=== PATIENT | female | born 1945 | race Caucasian/White ===

== ENCOUNTER → 2018-04-28 14:04 | Outpatient (CLI) | payer MEDICARE, SELFPAY ==
--- NOTE | 2018-04-28 14:20 | DI.CT.S_ITS ---
PROCEDURE: CT LE LT W/O CON INDICATIONS: Pain in left ankle and joints of left foot TECHNIQUE: Noncontrast 1-1.5 mm axial sections acquired from above the tibiotalar joint to the bottom of the calcaneus, with coronal and sagittal reformats. COMPARISON: [facility], MR, LOWER EXTREM. JNT WO CONTRAST, 04/06/2010, 8:52. FINDINGS: Image quality: Excellent. Bones: No fracture or dislocation. Mild osteoarthritic degenerative changes noted at the talonavicular joint, naviculocuneiform joint, second TMT joint and first MTP. Calcaneal bone spurs. Soft tissues: No soft tissue masses identified. No soft tissue fluid collections identified that would be suspicious for hematoma or abscess. No soft tissue inflammation. The flexor and extensor tendons are grossly intact. IMPRESSION: Mild multifocal osteoarthritis. Dictated by: Lacie Cantu MD, PhD on 04/28/2018 at 17:17 Approved by: Lacie Cantu MD, PhD on 04/29/2018 at 7:03
== END ==
PROVIDERS: PCP Family Medicine; Visit Provider Podiatrist Foot & Ankle Surgery
DX: M25.572 Pain in left ankle and joints of left foot (principal); M19.072 Primary osteoarthritis, left ankle and foot; M77.32 Calcaneal spur, left foot
CPT/HCPCS: 73700

== ENCOUNTER 2021-11-30 10:35 | Day surgery (SDC) | payer MEDICARE, SELFPAY ==
[2021-11-29 07:37] VITALS: BMI 25.1
[2021-11-30] VITALS (7 sets, daily range): BP systolic 122–178; BP diastolic 72–100; PULSE 72–114; RESP 16–22; TEMP 36.2–36.8; O2SAT 96–100; BMI 24.3
[2021-11-30 11:30] LABS: COVID19 -Nasal RAPID Negative (Negative)
--- NOTE | 2021-11-30 13:06 | PM.PREOP ---
Pre-operative Note Interval Note History & Physical reviewed/Exam performed by Physician: Yes Changes to H&P: No
--- NOTE | 2021-11-30 13:07 | PM.OP.1 ---
Operative Date/Time/Diagnoses Date of procedure: 11/30/21 Time of procedure: 14:18 Pre-op diagnosis: Closed, possible open nasal fracture with external nasal deformity, overlying soft tissue abscess versus hematoma Post-op diagnosis: same Procedure & Clinicians Procedure: 1. Closed reduction nasal fracture without stabilization 2. Incision and drainage nasal dorsum hematoma Same procedure as scheduled: Yes Indications: 76-year-old anticoagulated female suffered a ground level fall with nasal fracture 11/17, now 13 days ago, with CT showing displaced comminuted nasal fracture primarily to the left and superiorly, with overlying hematoma versus possible abscess on physical exam. Following discussion of the material risks benefits complications and alternatives, she elected to proceed with surgical intervention. Surgeon: Dano Hernandez Click Yes if Unassisted: Yes Anesthesia Type: General and Local Operative Notes Findings: Comminuted middle 3rd nasal fracture primarily deviated to the left, slightly reduced. Hematoma with old firm clot evacuated overlying the fracture, scar excised and incision closed. Closure Type: primary Specimen(s): none sent Estimated Blood Loss (mL): 5 Procedure in detail: Following identification and confirmation of consent, as well as preoperative Afrin nasal spray she was brought to the operating suite and placed in the supine position. General laryngeal mask anesthesia was administered. I packed small cotton balls with 4% lidocaine tightly under the nasal bones bilaterally. The nose was prepped with Betadine and a 15 blade incised horizontally into the hematoma which was evacuated and irrigated and closed with interrupted 5 0 nylon, followed by bacitracin. Upon removal of the intranasal cotton, the Boies elevator was placed underneath the right depressed nasal bone, and external digital pressure was simultaneously applied over the elevated left nasal bone and the nasal pyramid was reduced slightly past midline to allow eventual midline position, stable. The cotton was temporarily replaced underneath the nasal nasal bones for mild bleeding and was removed after another minute with good hemostasis. She was awakened in the operating room and taken to recovery room stable condition without known complication. Complications: none Post-operative Condition: stable Disposition: same day surgery Plan for aftercare: Ice as tolerated, Polysporin to the incision at all times, pressure to the incision for any bleeding, follow-up next week for suture removal. Afrin for any bleeding intranasally.
[2021-11-30] MEDS: OXYMETAZOLINE NASAL SPRAY 15 ML 2 SPRAYS NASAL (13:27)
[2021-11-30] MEDS: LACTATED RINGERS 1,000 ML 42 ML IV (13:34)
--- NOTE | 2021-11-30 13:59 | SUR.OPER ---
Supine on padded OR bed, head on pillow, arms secured on padded arm boards at <90 degrees abduction, legs uncrossed, safety belt at thigh, tape over blanket over lower legs.
[2021-11-30] MEDS: LIDOCAINE 4% SOLN 50 ML 20 ML TOP (14:00)
[2021-11-30] MEDS: LIDOCAINE 1% 20 ML INJ (14:03)
[2021-11-30] MEDS: BACITRACIN OINT 0.9 GM PCKT 1 APPLIC TOP (14:10)
[2021-11-30] MEDS: ACETAMINOPHEN 325 MG TABLET PO (14:52)
[2021-11-30] MEDS: ACETAMINOPHEN 325 MG TABLET 650 MG PO (15:30)
== END 2021-11-30 15:30 | disposition home or self-care (01) ==
PROVIDERS: PCP Family Medicine; Referring Provider Otolaryngology; Visit Provider Otolaryngology
PROC: 0NSBXZZ Reposition Nasal Bone, External Approach (ICD-10-PCS; CPT 21337; principal; 2021-11-30 11:45)
DX: S02.2XXA Fracture of nasal bones, initial encounter for closed fracture (principal); W18.30XA Fall on same level, unspecified, initial encounter; I48.91 Unspecified atrial fibrillation; I10 Essential (primary) hypertension; E78.5 Hyperlipidemia, unspecified
CPT/HCPCS: 21337; 87635; A9270; J1100; J2405; J2704; J3010

== ENCOUNTER → 2021-12-07 15:05 | Outpatient (CLI) | payer MEDICARE, SELFPAY ==
--- NOTE | 2021-12-07 15:06 | DI.MRI.S_ITS ---
PROCEDURE: MR HEAD/BRAIN WO CON INDICATIONS: Concussion without loss of consciousness TECHNIQUE: Non-contrast axial T1 spin echo, axial T2 fast spin echo, sagittal and axial FLAIR, coronal T2 fast spin echo, axial gradient echo, axial diffusion and ADC through the brain. COMPARISON: [facility], CT, CT HEAD WITHOUT CONTRAST, 11/22/2021, 16:31. FINDINGS: Image quality: Excellent. CSF spaces: Ventricles appear symmetric in size and shape. Basal cisterns are patent. No extra-axial fluid collections. Brain: No intracranial bleeds or mass effects. There is cerebral volume loss for age. There are periventricular and deep white matter chronic small vessel ischemic changes. Brainstem appears normal. Diffusion-weighted images show no acute ischemic insults. No chronic ischemic insults. Normal intravascular flow voids are present. Skull and face: Calvarial bone marrow is normal in signal. Orbits are normal. Sinuses: Sinuses and mastoids are clear. IMPRESSION: 1. Volume loss and small vessel ischemic disease. 2. No acute process. No recent infarct. Dictated by: Annabel Hutton M.D. on 12/07/2021 at 16:03 Approved by: Annabel Hutton M.D. on 12/07/2021 at 16:04
--- NOTE | 2021-12-07 15:08 | DI.CT.S_ITS ---
PROCEDURE: CT CERVICAL SPINE WO CON INDICATIONS: Concussion without loss of consciousness TECHNIQUE: Noncontrast 3 mm thick sections acquired from the skull base to the T4 level. Sagittal and coronal reformats were then constructed. For radiation dose reduction, the following was used: automated exposure control, adjustment of mA and/or kV according to patient size. COMPARISON: None. FINDINGS: Image quality: Excellent. Bones: No fractures or dislocations. Visualized superior ribs are intact. Multilevel disc space narrowing and endplate osteophyte formation. Facet hypertrophy throughout the cervical and upper thoracic spine. Soft tissues: Prevertebral soft tissues are normal in thickness. No paravertebral hematomas. No apical pneumothoraces. IMPRESSION: 1. No acute fracture. No osseous lesion. If symptoms and/or clinical suspicion for pathology persist, further assessment with repeat, or advanced imaging (e.g., CT, MRI, or bone scan) may be helpful for further assessment. 2. Multilevel degenerative disc and facet disease. Dictated by: Annabel Hutton M.D. on 12/07/2021 at 16:37 Transcribed by: PATIENCE on 12/07/2021 at 16:38 Approved by: Annabel Hutton M.D. on 12/07/2021 at 17:00
== END ==
PROVIDERS: PCP Family Medicine; Referring Provider Family Medicine; Visit Provider Family Medicine
DX: S06.0X0D Concussion without loss of consciousness, subsequent encounter (principal); S02.2XXA Fracture of nasal bones, initial encounter for closed fracture; S09.93XA Unspecified injury of face, initial encounter; M47.812 Spondylosis without myelopathy or radiculopathy, cervical region; M50.30 Other cervical disc degeneration, unspecified cervical region; W18.30XA Fall on same level, unspecified, initial encounter
CPT/HCPCS: 70551; 72125

== ENCOUNTER 2022-11-20 12:39 | Emergency (ER) | payer MEDICARE, SELFPAY ==
[2022-11-20 12:44] VITALS: BP 162/85; PULSE 66; RESP 16; TEMP 36.4; O2SAT 98; BMI 23.3
--- NOTE | 2022-11-20 12:53 | DI.CT.S_ITS ---
PROCEDURE: CT HEAD/BRAIN WO CON INDICATIONS: fall, hit head TECHNIQUE: Noncontrast 4.5 mm thick angled axial sections acquired from the foramen magnum to the vertex, with coronal and sagittal reformats. For radiation dose reduction, the following was used: automated exposure control, adjustment of mA and/or kV according to patient size. COMPARISON: [facility], CT, CT HEAD WITHOUT CONTRAST, 11/22/2021, 16:31. FINDINGS: Image quality: Good CSF spaces: Basal cisterns are patent. Lateral ventricles are symmetric. Volume: Vascular calcifications. Periventricular white matter disease is commonly seen with chronic microangiopathy. Volume loss is present. These findings are [id number] Brain: No intracranial hemorrhage. Hdez-white differentiation is grossly maintained. Craniofacial structures: No displaced fracture. Sinuses are clear. Orbits are intact. Nasal deformity is present, possibly nonacute. IMPRESSION: No acute intracranial abnormality. Dictated by: Bebeto Mckoy M.D. on 11/20/2022 at 13:36 Approved by: Bebeto Mckoy M.D. on 11/20/2022 at 13:38
--- NOTE | 2022-11-20 13:27 | DI.CT.S_ITS ---
PROCEDURE: CT CERVICAL SPINE WO CON INDICATIONS: fall, hit head TECHNIQUE: Noncontrast 3 mm thick sections acquired from the skull base to the T4 level. Sagittal and coronal reformats were then constructed. For radiation dose reduction, the following was used: automated exposure control, adjustment of mA and/or kV according to patient size. COMPARISON: [facility], CT, CT CERVICAL SPINE WO CON, 12/07/2021, 15:54. FINDINGS: Image quality: Good Bones: Bvlv-fn-jeacvkeh degenerative changes, particularly at C1-C2. Trace anterolisthesis of C4 on C5, similar to prior, probably degenerative. Trace anterolisthesis also seen of T1 on T2, probably also degenerative. No traumatic subluxation. Vertebral body heights are well maintained. Similar hyperdensity posterior to C1 on C2, likely degenerative pannus Soft tissues: Prevertebral soft tissues are normal in thickness. No paravertebral hematomas. No apical pneumothoraces. IMPRESSION: Nnny-dr-kesvenji degenerative changes, similar to prior. No acute fracture or traumatic subluxation. If there is high concern for further derangement, consider MRI evaluation. Dictated by: Bebeto Mckoy M.D. on 11/20/2022 at 13:38 Approved by: Bebeto Mckoy M.D. on 11/20/2022 at 13:41
--- NOTE | 2022-11-20 13:58 | ED.HEATRA ---
HPI - Head Injury <Anamaria Serrato PA-C - Last Filed: 11/20/22 17:20> General Chief complaint: Head Injury Stated complaint: Bump on the back of her head, tripped Time Seen by Provider: 11/20/22 13:58 Source: patient and family Mode of arrival: Wheelchair History of Present Illness HPI Narrative: Patient is a 77-year-old female who tripped and fell backwards and hit her head on a backhoe that was parked in her yard. This occurred last night while she was planting trees with her . She presents with a bump on the back of her head and a mild headache. She reports there was initially moderate bleeding which stopped with pressure. She is on Eliquis. She realized this morning that she should come be evaluated. She has not taken any pain medication or tried any therapy. Last tetanus was 20 or 30 years ago. She denies any loss of consciousness, nausea vomiting, or vision change. Related Data Home Medications Medication Instructions Recorded Confirmed apixaban 5 mg tablet (Eliquis) 5 mg PO BID 11/29/21 11/30/21 chlorthalidone 25 mg tablet 25 mg PO DAILY 11/29/21 11/30/21 clonidine HCl 0.1 mg tablet 0.2 mg PO BID 11/29/21 11/30/21 furosemide 20 mg tablet (Lasix) 20 mg PO DAILY 11/29/21 11/30/21 losartan 50 mg tablet 50 mg PO BID 11/29/21 11/30/21 nifedipine 30 mg tablet,extended 30 mg PO DAILY 11/29/21 11/29/21 release pravastatin 20 mg tablet 20 mg PO BEDTIME 11/29/21 11/29/21 Previous Rx's Medication Instructions Recorded [ESTRADI[facility]] 0.2 % [facility] 01/[facility]16 Allergies Allergy/AdvReac Type Severity Reaction Status Date / Time Penicillins [PENICILLINS] Allergy Unknown Rash, Hives Verified 11/20/22 12:44 latex Allergy Rash, Hives Verified 11/20/22 12:44 levofloxacin Allergy Verified 11/20/22 12:44 amlodipine AdvReac Lower Verified 11/20/22 12:44 extremity swelling hydralazine AdvReac Headache Verified 11/20/22 12:44 metoprolol AdvReac Bradycardia Verified 11/20/22 12:44 oxycodone AdvReac Shortness Verified 11/20/22 12:44 of Breath tramadol AdvReac Vertigo Verified 11/20/22 12:44 Review of Systems <Anamaria Serrato PA-C - Last Filed: 11/20/22 17:20> Review of Systems ROS Unobtainable: All systems reviewed & are unremarkable except as noted in HPI and below Patient History <Anamaria Serrato PA-C - Last Filed: 11/20/22 17:20> Medical History A-fib Fall from ground level (11/17/21) HLD (hyperlipidemia) HTN (hypertension) Thyroid disease Surgical History History of bladder suspension procedure Hx of foot surgery (06/2018) Status post appendectomy Status post knee surgery Status post tonsillectomy and adenoidectomy Social History household members: spouse Smoking Status: Never smoker alcohol intake: never Smoking Status: Never smoker Substance Use Type: does not use Exam <Anamaria Serrato PA-C - Last Filed: 11/20/22 17:20> Narrative Exam Narrative: GENERAL: 77 year old patient appears stated age. Well-developed patient, in no distress. NEURO: AOx3. HEAD: Normocephalic. Small hematoma on left occiput with scabbing, no active bleeding. EYES: Pupils equal round and reactive. Extraocular motions intact. No scleral icterus. No injection or drainage. ENT: Nose without bleeding or purulent drainage. Airway patent. NECK: Trachea midline. Non tender RESPIRATORY: No distress EXTREMITIES: No edema or joint tenderness. SKIN: No rash or erythema of visible areas Initial Vital Signs Initial Vital Signs: Vital Signs Temperature 97.6 F 11/20/22 12:44 Pulse Rate 66 11/20/22 12:44 Respiratory Rate 16 11/20/22 12:44 Blood Pressure 162/85 H 11/20/22 12:44 Pulse Oximetry 98 11/20/22 12:44 Oxygen Delivery Method Room Air 11/20/22 12:44 <Low Campbell MD - Last Filed: 11/29/22 08:42> Initial Vital Signs Initial Vital Signs: Vital Signs Temperature 97.6 F 11/20/22 12:44 Pulse Rate 66 11/20/22 12:44 Respiratory Rate 16 11/20/22 12:44 Blood Pressure 162/85 H 11/20/22 12:44 Pulse Oximetry 98 11/20/22 12:44 Oxygen Delivery Method Room Air 11/20/22 12:44 Course <Anamaria Serrato PA-C - Last Filed: 11/20/22 17:20> Orders Ordered: Discontinued Medications Diphtheria/Tetanus/Acell Pertussis (Tet,Diph,Pertuss(Acell),Vac/Pf 0.5 Ml Syringe) 0.5 ml IM .ONCE ONE Stop: 11/20/22 14:15 Last Admin: 11/20/22 14:21 Dose: 0.5 ml Documented By: YANI Vital Signs Vital signs: Vital Signs - 8 hr 11/20/22 12:44 11/20/22 14:29 Temperature 97.6 F Pulse Rate 66 66 Respiratory Rate 16 18 Blood Pressure 162/85 H 150/72 H Pulse Oximetry 98 99 Oxygen Delivery Method Room Air Room Air <Low Campbell MD - Last Filed: 11/29/22 08:42> Orders Ordered: Discontinued Medications Diphtheria/Tetanus/Acell Pertussis (Tet,Diph,Pertuss(Acell),Vac/Pf 0.5 Ml Syringe) 0.5 ml IM .ONCE ONE Stop: 11/20/22 14:15 Last Admin: 11/20/22 14:21 Dose: 0.5 ml Documented By: DKEbony Vital Signs Vital signs: Vital Signs - 8 hr 11/20/22 12:44 11/20/22 14:29 Temperature 97.6 F Pulse Rate 66 66 Respiratory Rate 16 18 Blood Pressure 162/85 H 150/72 H Pulse Oximetry 98 99 Oxygen Delivery Method Room Air Room Air MDM - Head Injury <Anamaria Serrato PA-C - Last Filed: 11/20/22 17:20> Imaging Data CT - cervical spine: Radiologist's Impression: PROCEDURE:? CT CERVICAL SPINE WO CON ? INDICATIONS:? fall, hit head ? TECHNIQUE:? Noncontrast 3 mm thick sections acquired from the skull base to the T4 level.? Sagittal and coronal reformats were then constructed.? For radiation dose reduction, the following was used:? automated exposure control, adjustment of mA and/or kV according to patient size.? ? COMPARISON:? [facility], CT, CT CERVICAL SPINE WO CON, 12/07/2021, 15:54. ? FINDINGS:? Image quality:? Good ? Bones:? Yubg-aw-jdkjgowt degenerative changes, particularly at C1-C2.? Trace anterolisthesis of C4 on C5, similar to prior, probably degenerative.? Trace anterolisthesis also seen of T1 on T2, probably also degenerative.? No traumatic subluxation.? Vertebral body heights are well maintained. Similar hyperdensity posterior to C1 on C2, likely degenerative pannus ? Soft tissues:? Prevertebral soft tissues are normal in thickness.? No paravertebral hematomas.? No apical pneumothoraces.? ? ? IMPRESSION:? Qrea-jv-qrznehsn degenerative changes, similar to prior.? No acute fracture or traumatic subluxation.? If there is high concern for further derangement, consider MRI evaluation. ? Dictated by: Bebeto Mckoy M.D. on 11/20/2022 at 13:38 ? ? Approved by: Bebeto Mckoy M.D. on 11/20/2022 at 13:41 ? CT scan - head: Radiologist's Impression: PROCEDURE:? CT HEAD/BRAIN WO CON ? INDICATIONS:? fall, hit head ? TECHNIQUE:? Noncontrast 4.5 mm thick angled axial sections acquired from the foramen magnum to the vertex, with coronal and sagittal reformats.? For radiation dose reduction, the following was used:? automated exposure control, adjustment of mA and/or kV according to patient size.? ? COMPARISON:? [facility], CT, CT HEAD WITHOUT CONTRAST, 11/22/2021, 16:31. ? FINDINGS:? Image quality:? Good ? CSF spaces: Basal cisterns are patent. Lateral ventricles are symmetric. Volume:? Vascular calcifications. Periventricular white matter disease is commonly seen with chronic microangiopathy. Volume loss is present. These findings are [id number] ? ? Brain: No intracranial hemorrhage. Hdez-white differentiation is grossly maintained. ? Craniofacial structures: No displaced fracture. Sinuses are clear. Orbits are intact.? Nasal deformity is present, possibly nonacute. ? IMPRESSION:? No acute intracranial abnormality.? ? ? Dictated by: Bebeto Mckoy M.D. on 11/20/2022 at 13:36 ? ? Approved by: Bebeto Mckoy M.D. on 11/20/2022 at 13:38 ? MDM Narrative Medical decision making narrative: Multiple etiologies for patient's symptoms considered including, but not limited to: Intracranial hemorrhage, skull fracture, C-spine injury. Imaging of head and cervical spine are both negative for acute injury. Advised patient to take Tylenol for headache, she has it at home and will take it there. Tetanus booster given. Wound has scabbed over, discussed cleaning it but we will leave it to heal as it is already formed a good clot and I do not want to make her bleed again. Patient's symptoms improved over duration of stay with above-stated therapies. Findings and discharge diagnosis discussed with patient/family followed by verbalization of understanding Return precautions discussed with patient/family whom verbalize understanding of diagnosis and plan Discharge Plan Departure Patient Disposition: Home Clinical Impression: Blunt head trauma Instructions: DI for Closed Head Injury Activity Restrictions/Additional Instructions: *You have been diagnosed with blunt head injury after falling yesterday. Your head CT and neck CT to not show any fracture or acute injury. You may have a mild concussion; the treatment for this is brain rest which includes no screen time, no music or reading, truly rest your brain. The symptoms will likely improve over time. I would recommend taking Tylenol for headache, up to 3000 mg in 24 hours. You can apply an ice pack to the sore area on your head to decrease swelling. Wait 1 more day and then you can shower tomorrow and wash your hair, I would give your body more time to form a good blood clot over the small laceration before washing her hair because you may bleed heavily again. We will give you a tetanus booster today since it seems you are due for one. *What to do: *Please continue to take your regular medications as directed. [ ] New medication prescriptions sent to your pharmacy: [ ] [ ] New medication written as a paper prescription [x] No new medications given *Please follow up with your primary care provider in 2-3 days, call for an appointment. Let them know you were seen in the Emergency Department and that we ask that you be seen in follow up. We will electronically transmit a record of today's note if your PCP is in our system *If you do not have a primary care provider please contact the [facility] Resource line at [phone]. They will ask some questions about your medical history and help get you set up with a doctor in the community. *Return to Emergency Department if you should have any new, worsening or concerning symptoms, such as [fever greater than 101 F, shaking chills, worsening pain, persistent vomiting or other concerning symptoms]. Prescriptions: No Action [ESTRADIOL] 0.2 % [facility] Qty: 30 3RF losartan 50 mg Tablet 50 mg PO BID clonidine HCl 0.1 mg Tablet 0.2 mg PO BID nifedipine 30 mg Tablet Extended Release 30 mg PO DAILY chlorthalidone 25 mg Tablet 25 mg PO DAILY pravastatin 20 mg Tablet 20 mg PO BEDTIME furosemide [Lasix] 20 mg Tablet 20 mg PO DAILY Eliquis 5 mg Tablet 5 mg PO BID Referrals: Malika Alcantara MD [Primary Care Provider] - Stand Alone Forms: Patient Portal/API ED Sign-out <Low Campbell MD - Last Filed: 11/29/22 08:42> Cosign ED Attending Coskatherineature Attestation: I was immediately available in the department for consultation. ?This documentation has been reviewed and I agree with assessment and plan. Supervised by Low Campbell MD
[2022-11-20] MEDS: TET,DIPH,PERTUSS(ACELL),VAC/PF 0.5 ML SYRINGE IM (14:21)
[2022-11-20 14:29] VITALS: BP 150/72; PULSE 66; RESP 18; O2SAT 99
== END 2022-11-20 14:31 | disposition home or self-care (01) ==
PROVIDERS: Emergency Provider Physician Assistant; PCP Family Medicine
DX: S09.90XA Unspecified injury of head, initial encounter (principal); W01.198A Fall on same level from slipping, tripping and stumbling with subsequent striking against other object, initial encounter; Z23 Encounter for immunization
CPT/HCPCS: 70450; 72125; 90471; 99284; 90715

== ENCOUNTER → 2023-05-13 08:26 | Outpatient (CLI) | payer MEDICARE, SELFPAY | PROVIDERS: PCP Family Medicine; Visit Provider Nurse Practitioner Family | DX: T65.91XA Toxic effect of unspecified substance, accidental (unintentional), initial encounter (principal); W57.XXXA Bitten or stung by nonvenomous insect and other nonvenomous arthropods, initial encounter | CPT/HCPCS: 87070; 87075; 87077; 87147; 87186; 87205 ==

== ENCOUNTER 2023-05-15 10:05 | Emergency (ER) | payer MEDICARE, SELFPAY ==
[2023-05-15 10:22] VITALS: BP 130/68; PULSE 82; RESP 17; TEMP 36.7; O2SAT 97; BMI 23.3
--- NOTE | 2023-05-15 12:45 | PC.NURSE ---
Pt states she think was bit by a bug (possibly spider)
--- NOTE | 2023-05-15 13:08 | ED.SKABFB ---
HPI - Skin/Abscess/Foreign Bdy General Chief complaint: Skin/Abscess/Foreign Body Stated complaint: bug bite poss infected bleeding Time Seen by Provider: 05/15/23 13:07 Source: patient Mode of arrival: Ambulatory History of Present Illness HPI narrative: 77-year-old woman with a history of paroxysmal atrial fibrillation, anticoagulated, hypertension, hyperlipidemia who presents with increasing left thigh pain. She had some sort of ?bug bite? a couple of days ago. Was seen at urgent care 3 days ago started on doxycycline for which she has taken 4 total doses as well as mupirocin. Notes that the wound is getting larger, more erythematous and more painful. She has not complaining of significant systemic symptoms such as fever, confusion, cough, dyspnea, chest pain, headaches, myalgias Related Data Home Medications Medication Instructions Recorded Confirmed apixaban 5 mg tablet (Eliquis) 5 mg PO BID 11/29/21 05/15/23 clonidine HCl 0.1 mg tablet 0.2 mg PO BID 11/29/21 05/15/23 furosemide 20 mg tablet (Lasix) 20 mg PO DAILY 11/29/21 05/15/23 losartan 50 mg tablet 50 mg PO BID 11/29/21 05/15/23 nifedipine 30 mg tablet,extended 30 mg PO DAILY 11/29/21 05/15/23 release pravastatin 20 mg tablet 20 mg PO BEDTIME 11/29/21 05/15/23 Previous Rx's Medication Instructions Recorded [ESTRADIOL] 0.2 % SEECOM ##30 01/24/16 doxycycline hyclate 100 mg capsule 100 mg PO BID #20 caps 05/13/23 mupirocin 2 % topical ointment 1 applic topical TID #15 grams 05/13/23 clindamycin HCl 300 mg capsule 300 mg PO TID #15 caps 05/15/23 Allergies Allergy/AdvReac Type Severity Reaction Status Date / Time Penicillins [PENICILLINS] Allergy Unknown Rash, Hives Verified 05/15/23 10:27 latex Allergy Rash, Hives Verified 05/15/23 10:27 levofloxacin Allergy Verified 05/15/23 10:27 amlodipine AdvReac Lower Verified 05/15/23 10:27 extremity swelling hydralazine AdvReac Headache Verified 05/15/23 10:27 metoprolol AdvReac Bradycardia Verified 05/15/23 10:27 Review of Systems Review of Systems Narrative: Pertinent positive and negative findings as per HPI Patient History Medical History Fall from ground level (11/17/21) HLD (hyperlipidemia) HTN (hypertension) Thyroid disease A-fib Surgical History Hx of foot surgery (06/2018) History of bladder suspension procedure Status post knee surgery Status post appendectomy Status post tonsillectomy and adenoidectomy Social History household members: spouse Smoking Status: Never smoker alcohol intake: never Smoking Status: Never smoker alcohol intake frequency: other Substance Use Type: does not use Exam Initial Vital Signs Initial Vital Signs: Vital Signs Temperature 98.1 F 05/15/23 10:22 Pulse Rate 82 05/15/23 10:22 Respiratory Rate 17 05/15/23 10:22 Blood Pressure 130/68 05/15/23 10:22 Pulse Oximetry 97 05/15/23 10:22 Oxygen Delivery Method Room Air 05/15/23 10:22 General: Alert appropriate in no acute distress Respiratory: Able to speak in full sentences, no obvious respiratory distress Skin: Lower external right thigh has an approximately 12 x 12 cm area of erythema that is warm to the touch, has a 2 x 2 cm of central necrosis with what feels like deeper fluctuance Neurologic: Grossly intact no obvious asymmetries or abnormalities Psych: appropriate insight and affect, cooperative Bedside ultrasound does suggest deeper abscess collection Procedures Abscess I/D Right thigh: Time of procedure: 14:48 Site: lower extremity Side (if applicable): right Local Anesthetic: lidocaine 2% Amount of anesthesia used (mL): 8 Technique: incised with #11 blade Amount of fluid expressed (mL): 10 Irrigation: Yes Packing used?: plain Course Orders Ordered: ED Orders 05/15/23 13:20 Wound Culture and Gram Stain Stat 05/15/23 13:43 Complete Blood Count AUTO DIFF Stat Comprehensive Metabolic Panel Stat Discontinued Medications Ceftriaxone Sodium 2,000 mg/ (Sodium Chloride) 100 mls @ 200 mls/hr IV NOW ONE Stop: 05/15/23 13:14 Last Infusion: 05/15/23 14:25 Dose: Infused Documented By: Admin: 05/15/23 13:39 Dose: 200 mls/hr Documented By: JOSE Vital Signs Vital signs: Vital Signs - 8 hr 05/15/23 10:22 05/15/23 14:31 Temperature 98.1 F 97.8 F Pulse Rate 82 73 Respiratory Rate 17 16 Blood Pressure 130/68 149/72 H Pulse Oximetry 97 97 Oxygen Delivery Method Room Air Room Air MDM - Skin/Abscess/Foreign Bdy Lab Data 05/15/23 13:43 05/15/23 13:43 Labs: Lab Results 05/15/23 Range/Units 13:43 WBC 10.0 (4.5-11.0) X10^3/uL RBC 3.97 L (4.0-5.2) X10^6/uL Hgb 12.7 (12.0-16.0) g/dL Hct 36.9 (36-46) % MCV 92.8 (80-100) fL MCH 31.9 (26-34) PG MCHC 34.4 (30-36) % RDW 13.7 (11.6-14.8) % Plt Count 318 (150-400) X10^3/uL Neut % (Auto) 74.4 (50-75) % Lymph % (Auto) 16.8 L (25-40) % Emmons % (Auto) 7.5 (3-14) % Eos % (Auto) 0.9 L (2-4) % Baso % (Auto) 0.4 (0-2) % Neut # (Auto) 7400 H (9178-8628) /uL Lymph # (Auto) 1700 (6287-6831) /uL Emmons # (Auto) 700 (0-900) /uL Eos # (Auto) 100 (0-450) /uL Baso # (Auto) 0 (0-100) /uL Sodium 133 L (137-145) mmol/L Potassium 3.8 (3.4-5.1) mmol/L Chloride 100 (98-107) mmol/L Carbon Dioxide 26 (22-32) mmol/L BUN 34 H (7-17) mg/dL Creatinine 0.76 (0.52-1.04) mg/dL Estimated GFR > 60 (>60) mL/min BUN/Creatinine Ratio 44.7 H (6-22) Glucose 94 (80-110) mg/dL Calcium 10.3 H (8.4-10.2) mg/dL Total Bilirubin 0.7 (0.2-1.3) mg/dL AST 47 H (14-36) IU/L ALT 58 H (<35) IU/L Alkaline Phosphatase 118 (38-126) U/L Total Protein 8.3 H (6.3-8.2) g/dL Albumin 4.3 (3.5-5.0) g/dL Globulin 4.0 (1.7-4.1) g/dL Albumin/Globulin Ratio 1.1 (1.0-2.8) MDM Narrative Medical decision making narrative: CC: 77-year-old woman with developing abscess on the right outer thigh. Day 2 of doxycycline Complicating co-morbidities: Paroxysmal AFib, hypertension, anticoagulated Data collected from: patient, Differential considered: Failed antibiotic treatment, superficial cellulitis, deep cellulitis, abscess, muscle necrosis Exam documented above, pertinent findings include: Cellulitis with abscess and central necrosis over the lateral aspect of the right thigh. Bedside ultrasound does show moderate abscess under the area of cellulitis. There is no lymphangitic streaking, no inguinal adenopathy. Lab Test results independently reviewed as above. Pertinent findings: CBC is reassuring Chemistries show appropriate renal function. Minimal elevation 2 AST and ALT appreciated today uncertain etiology Wound culture from May 12 is showing MRSA, it is sensitive to doxycycline gentamicin vancomycin daptomycin moxifloxacin rifampin tetracycline resistant to Bactrim Cipro and erythromycin Treatments: I and D of wound, culture is sent. IV ceftriaxone given Discussion: 77-year-old woman with a superficial cellulitis of the right thigh that has now developed an abscess. Quite a bit of purulence with some necrotic central tissue was removed today. Bleeding is well controlled. We will ask her to continue with the doxycycline and to this will add clindamycin. There is a small amount of gauze was left in the wound that I have instructed her to leave in place for 48 hours to make sure there is superficial closure. She is instructed to return with increasing pain, new findings, spreading redness or any type of systemic symptoms like fever, headache or confusion. Questions are answered and she is safe for discharge Discharge Plan Departure Patient Disposition: Home Clinical Impression: Cellulitis Qualifiers: Site of cellulitis: extremity Site of cellulitis of extremity: lower extremity Laterality: right Qualified Code(s): L03.115 - Cellulitis of right lower limb Abscess of skin or subcutaneous tissue Qualifiers: Site of cutaneous abscess: extremity Site of cutaneous abscess of extremity: lower extremity Laterality: right Qualified Code(s): L02.415 - Cutaneous abscess of right lower limb Instructions: DI for Skin Abscess Activity Restrictions/Additional Instructions: Thank you for coming in today This did start out as a cellulitis and did progress to an abscess. The culture done on the at urgent Care shows staph aureus with multiple resistances but it is sensitive to doxycycline which you are currently taking. To this I am going to add clindamycin for an additional 5 days. For the most part, draining the abscess is going to provide the most benefit [facility] and needs [facility] be [facility] by tomorrow. Please leave the piece of gauze in the wound until Friday. On Friday you can get in the shower and simply pull the gauze out. I do want the wound actually to stay open on the surface and close/heal from the inside out. You can use Tylenol to help for pain control. You may find that hot compresses or heating pad to the area is also helpful If you find that you are developing fevers, body aches, headaches or that the wound is expanding or you are having more muscle spasm or pain in the area you do need to come back to the ER for further evaluation Prescriptions: New clindamycin HCl 300 mg capsule 300 mg PO TID Qty: 15 0RF No Action doxycycline hyclate 100 mg capsule 100 mg PO BID Qty: 20 0RF mupirocin 2 % ointment 1 applic topical TID Qty: 15 0RF [ESTRADIOL] 0.2 % SEECOM Qty: 30 3RF losartan 50 mg Tablet 50 mg PO BID clonidine HCl 0.1 mg Tablet 0.2 mg PO BID nifedipine 30 mg Tablet Extended Release 30 mg PO DAILY pravastatin 20 mg Tablet 20 mg PO BEDTIME furosemide [Lasix] 20 mg Tablet 20 mg PO DAILY Eliquis 5 mg Tablet 5 mg PO BID Referrals: Malika Alcantara MD [Primary Care Provider] - Stand Alone Forms: Patient Portal/API
[2023-05-15] MEDS: cefTRIAXone 2,000 MG in SODIUM CHLORIDE 0.9% 100 ML 200 MG IV (13:39)
[2023-05-15 13:57] LABS: Add Manual Diff / Slide Review NO; Basophils Absolute Auto 0 /uL (0-100); Basophils Percent Auto 0.4 % (0-2); Eosinophils Absolute Auto 100 /uL (0-450); Eosinophils Percent Auto 0.9 % (2-4); Hematocrit 36.9 % (36-46); Hemoglobin 12.7 g/dL (12.0-16.0); Lymphocytes Absolute Auto 1700 /uL (1100-4500); Lymphocytes Percent Auto 16.8 % (25-40); Mean Corpuscular HGB Conc 34.4 % (30-36); Mean Corpuscular Hemoglobin 31.9 PG (26-34); Mean Corpuscular Volume 92.8 fL (80-100); Monocytes Absolute Auto 700 /uL (0-900); Monocytes Percent Auto 7.5 % (3-14); Neutrophils Absolute Auto 7400 /uL (1500-7000); Neutrophils Percent Auto 74.4 % (50-75); Platelet Count 318 X10^3/uL (150-400); Red Blood Cell Count 3.97 X10^6/uL (4.0-5.2); Red Cell Distribution Width 13.7 % (11.6-14.8)
--- NOTE | 2023-05-15 14:26 | PC.NURSE ---
abscess drained and packed by
[2023-05-15 14:31] VITALS: BP 149/72; PULSE 73; RESP 16; TEMP 36.6; O2SAT 97
[2023-05-15 14:32] LABS: Albumin 4.3 g/dL (3.5-5.0); Albumin Globulin Ratio 1.1 (1.0-2.8); Alkaline Phosphatase 118 U/L (38-126); BUN Creatinine Ratio 44.7 (6-22); Bilirubin Total 0.7 mg/dL (0.2-1.3); Blood Urea Nitrogen 34 mg/dL (7-17); Calcium 10.3 mg/dL (8.4-10.2); Carbon Dioxide 26 mmol/L (22-32); Chloride 100 mmol/L (98-107); Estimated Glomerular Filt Rate > 60 mL/min (>60); Glucose 94 mg/dL (80-110); Sodium 133 mmol/L (137-145); Total Protein 8.3 g/dL (6.3-8.2)
[2023-05-15 14:35] LABS: Alanine Aminotransferase 58 IU/L (<35); Aspartate Aminotransferase 47 IU/L (14-36); HEMOLYSIS 58 (0-50); Potassium 3.8 mmol/L (3.4-5.1)
[2023-05-15 15:21] VITALS: BP 167/91; PULSE 76; RESP 16; O2SAT 97
--- NOTE | 2023-05-15 15:21 | PC.NURSE ---
reassess; no change
== END 2023-05-15 15:23 | disposition home or self-care (01) ==
PROVIDERS: Emergency Provider Emergency Medicine; PCP Family Medicine
DX: L03.115 Cellulitis of right lower limb (principal); L02.415 Cutaneous abscess of right lower limb; Z79.01 Long term (current) use of anticoagulants; Z79.899 Other long term (current) drug therapy
CPT/HCPCS: 10060; 36415; 80053; 85025; 87070; 87077; 87147; 87186; 87205; 96365; 99284; J0696

== ENCOUNTER → 2024-05-11 14:08 | Outpatient (CLI) | payer MEDICARE, SELFPAY ==
[2024-05-11 15:02] LABS: Influenza A - CEPHEID Flu A NEGATIVE (NEGATIVE); Influenza B - CEPHEID Flu B NEGATIVE (NEGATIVE); Respiratory Syncytial Virus Negative (Negative)
[2024-05-11 15:05] LABS: COVID-19 CEPHEID 4-PLEX PCR Negative (Negative)
== END ==
PROVIDERS: PCP Family Medicine; Visit Provider Nurse Practitioner Family
DX: Z20.828 Contact with and (suspected) exposure to other viral communicable diseases (principal)
CPT/HCPCS: 0241U

== ENCOUNTER → 2024-05-12 11:25 | Outpatient (CLI) | payer MEDICARE, SELFPAY | PROVIDERS: PCP Family Medicine; Referring Provider Nurse Practitioner Family; Visit Provider Nurse Practitioner Family | DX: R19.7 Diarrhea, unspecified (principal) | CPT/HCPCS: 87045 ==